=== PATIENT | female | born 1980 | race Caucasian/White ===

== ENCOUNTER 2018-02-26 17:22 | Emergency (ER) | payer OTHER, SELFPAY ==
[2018-02-26 17:23] VITALS: BP 125/84; PULSE 83; RESP 16; TEMP 36.6; O2SAT 97; BMI 41.8
--- NOTE | 2018-02-26 17:44 | RAD_ITS ---
STUDY: X-RAY CHEST REASON FOR EXAM: Female, 37 years old. Pain. TECHNIQUE: PA and lateral views of the chest. COMPARISON: October 17, 2014 FINDINGS: The lungs are clear and expanded. There is no demonstrated pleural abnormality. Normal size heart. Normal mediastinum and serena. Normal visualized pulmonary arteries. Normal visualized aortic arch and descending thoracic aorta. Normal visualized thoracic spine. Normal visualized ribs, clavicles, and shoulders. There is no demonstrated abnormality of the visualized soft tissue structures of the upper abdomen. RAD/Chest PA and Lateral IMPRESSION: No acute cardiopulmonary process. Electronically Signed: Melisa Frank MD at 17:56 EDT Tel , Service support ,
--- NOTE | 2018-02-26 17:52 | ED.DCSUM_ITS ---
- ER Visit Summary Date of Service: 02/26/18 Chief Complaint: Transient left-sided chest pain that lasts less than 5 seconds. History of Present Illness: The patient is a 37 F with no significant past medical history who presents with left-sided sharp transient chest pain last less than 5 seconds. There are no alleviating, exacerbating or precipitating factors. She has no history of PE DVT. She has no risk factors either. Only medication is an antidepressant. She denies fever, chills night sweats. She denies any ocular, visual or auditory symptoms. She denies rhinorrhea, earache , sore throat or postnasal drainage. She denies cough or difficulty breathing. She denies leg pain, swelling discoloration. She is on no hormonal therapy. She denies any abdominal or symptoms. Please read written note for complete detail Physical Examination: Vital signs are unremarkable. She is PERC negative. BMI is 41.9. Head is atraumatic normocephalic. Pupils are equal round reactive. Extraocular muscles are intact. TMs are pearly white with landmarks noted. Nares patent with no drainage. Posterior pharynx without erythema or exudate. Uvula is midline. There is no dysphonia or dysphasia. Trachea is midline. There is no stridor with auscultation of the neck. Heart is regular without murmur, gallop or rub. S1 and S2 are normal. Lungs are clear to auscultation with good movement of air bilaterally. Abdomen is soft nontender with normal bowel sounds. There is no asymmetry, swelling, discoloration, leg vein distention, palpable cords or tenderness along the distribution of the deep venous system. Neuro exam is nonfocal. Test Results: Two-view chest x-ray interpreted by me reveals normal cardiac silhouette, mediastinum, lung parenchyma and bony structures. Emergency Department Course and Treatment: Patient was told her symptoms are not consistent with cardiac. She states her insisted that she come to the emergency department. Treatment Plan: Symptomatic. Patient was informed that because her pain is unknown. She was told this is not cardiac, pulmonary embolus, pneumonia etc. Disposition: Discharged home with appropriate home-going instructions Impression: Transient left-sided chest pain of unknown etiology This note was generated with [employer] dictation software. It may contain incorrect words, spelling, and punctuation that were not noted in review of the chart prior to signing ED Disposition - Plan for ED Patient: Disposition: Home or Assisted Living Chief Complaint: Other, Pain/Inj Instructions: ED Chest Pain NonCardiac Referrals: Jamal Vila MD [Primary Care Provider] - 3-5 Days if not improving
[2018-02-26 18:37] VITALS: BP 115/81; PULSE 70; RESP 16
== END 2018-02-26 18:37 | disposition home or self-care (01) ==
PROVIDERS: Emergency Provider Emergency Medicine; Family Provider Family Medicine; PCP Family Medicine
DX: R07.89 Other chest pain (principal); E66.9 Obesity, unspecified; Z68.41 Body mass index [BMI] 40.0-44.9, adult; F32.9 Major depressive disorder, single episode, unspecified
CPT/HCPCS: 71046; 99282

== ENCOUNTER → 2018-09-08 11:07 | Outpatient (CLI) | payer OTHER, SELFPAY ==
--- NOTE | 2018-09-08 11:31 | EKG12_ITS ---
Test Reason : PRE-OP Blood Pressure : / mmHG Vent. Rate : 057 BPM Atrial Rate : 057 BPM P-R Int : 148 ms QRS Dur : 088 ms QT Int : 424 ms P-R-T Axes : 046 015 022 degrees QTc Int : 412 ms Sinus bradycardia Poor R wave progression Confirmed by BRANDON LEWIS, NAYAN ([id number]), editor publications OLAMIDE WU ([id number]) on 09/08/2018 1:08:23 PM Referred By: OUT DOCTOR Confirmed By:NAYAN TAYLOR MD
== END ==
PROVIDERS: Family Provider Family Medicine; PCP Family Medicine
DX: Z01.810 Encounter for preprocedural cardiovascular examination (principal)
CPT/HCPCS: 93005

== ENCOUNTER → 2018-10-02 08:39 | Outpatient (CLI) | payer OTHER, SELFPAY ==
[2018-10-02 10:23] LABS: International Normalized Ratio 0.9; Partial Thromboplast Time 27.4 Seconds (24.1-36.2); Prothrombin Time (Protime)PT. 12.6 SECONDS (11.7-14.9)
[2018-10-02 10:45] LABS: Vitamin B12 404 pg/mL (211-911); Vitamin D,25 Hydroxy 12.7 ng/mL (29.95-100.01)
[2018-10-02 13:45] LABS: Color, Urine Yellow (Yellow); Glucose, Dipstick Normal (Normal); Ketone-Dipstick 5 mg/dl (Negative); Leukocyte Esterase-Dipstick 100 /ul (Negative); Nitrite-Dipstick Negative (Negative); Occult Blood-Urine Negative /ul (Negative); Protein-Dipstick 15 mg/dl (Negative); Urine Bilirubin Dipstick Negative (Negative); Urine Clarity Sl. Cloudy (Clear); Urine Urobilinogen Normal (Normal)
[2018-10-02 13:47] LABS: Absolute Lymphocyte Count 2.31 X10^3/ul (0.83-4.51); Absolute Neutrophil Count 4.2 X10^3/uL (2.0-7.7); Basophil# 0.02 X10^3/uL; Basophil% 0.3 % (0-1); Eosinophil# 0.27 X10^3/uL; Eosinophils% 3.6 % (0-5); Hematocrit 41.3 % (37-47); Lymphocyte # 2.31 X10^3/ul (4.0); Lymphocyte % 30.9 % (19-41); Mean Corp Hgb Conc 31.5 g/gl (32-36); Mean Corpuscular Hgb 27.7 pg (27.0-32.0); Mean Corpuscular Volume 88.1 fL (81-99); Mean Platelet Vol. 10.4 fl (6.2-12.0); Monocyte# 0.69 X10^3/uL; Monocyte% 9.2 % (0-10); Neutrophil # 4.17 X10^3/uL (2.7-7.7); Neutrophil % 55.9 % (47-70); POSITIVE COUNT NO; POSITIVE DIFFERENTIAL NO; POSITIVE MORPHOLOGY NO; Platelet Count 336 K/mm3 (150-450); RBC Distribution Width CV 13.8 % (11.6-14.6); RBC Distribution Width SD 44.5 fl (35.1-43.9); Red Blood Count 4.69 M/mm3 (4.2-5.4); White Blood Count 7.5 K/mm3 (4.4-11.0)
[2018-10-02 14:26] LABS: ALB/GLOB Ratio 0.9 RATIO (0.9-2.4); AST(SGOT) 15 U/L (15-37); Alanine Aminotransfer ALT/SGPT 31 U/L (13-56); Albumin, Serum 3.5 g/dL (3.2-5.0); Alkaline Phosphatase 113 U/L (45-117); Anion Gap 7 (5-15); BUN 19 mg/dL (7-18); BUN/Creat Ratio 25.7 RATIO (10-20); Calcium,Total 8.5 mg/dL (8.5-10.1); Chloride 106 mmol/L (98-107); Cholesterol 259 mg/dL (200); Creatinine, Serum 0.74 mg/dL (0.55-1.02); EST Glomerular Filtration Rate 93 mL/min (>60); Est Glom Filt Rate - Afr Amer 113 mL/min (>60); Ferritin 32 ng/mL (8-252); Glucose 104 mg/dL (74-106); High Density Lipoprotein 48 mg/dL; Iron 47 ug/dL (50-170); Iron Binding Capacity,Total 370 ug/dL (250-450); PERCENT IRON SATURATION 12.7 % (15.0-55.0); Protein, Total 7.5 g/dL (6.4-8.2); Sodium Level 140 mmol/L (136-145); T4 Free Direct 0.77 ng/dL (0.76-1.46); Thyroid Stim Hormone (TSH) 2.28 uIU/mL (0.358-3.74); Triglycerides 127 mg/dL; Very Low Density Lipoprotein 25 mg/dL (5-40)
[2018-10-06 09:07] LABS: Vitamin B1, Thiamine 120.6 nmol/L (66.5-200.0)
== END ==
PROVIDERS: Family Provider Family Medicine; PCP Family Medicine
DX: R53.81 Other malaise (principal); R53.83 Other fatigue; K90.9 Intestinal malabsorption, unspecified; E55.9 Vitamin D deficiency, unspecified; E78.2 Mixed hyperlipidemia
CPT/HCPCS: 36415; 80053; 80061; 81002; 82306; 82607; 82728; 83540; 83550; 84425; 84439; 84443; 85025; 85610; 85730; 87086; 87088

== ENCOUNTER → 2020-06-21 09:27 | Outpatient (CLI) | payer OTHER, SELFPAY ==
[2020-06-21 08:40] VITALS: BMI 41.8
[2020-06-21 10:50] LABS: Estradiol 63.5 pg/mL; Follicle Stimulating Hormone 3.4 mIU/mL; Thyroid Stim Hormone (TSH) 1.46 uIU/mL (0.358-3.74)
[2020-06-21 11:10] LABS: NATERA MAILED SPECIMEN
[2020-06-24 15:11] LABS: Testosterone Free 2.7 pg/mL (0.0-4.2)
[2020-06-28 04:30] LABS: HPV APTIMA, High Risk Negative (Negative)
== END ==
PROVIDERS: PCP Family Medicine; Referring Provider Obstetrics & Gynecology; Visit Provider Obstetrics & Gynecology
DX: L68.0 Hirsutism (principal); N91.1 Secondary amenorrhea; Z13.29 Encounter for screening for other suspected endocrine disorder; Z12.4 Encounter for screening for malignant neoplasm of cervix; Z80.3 Family history of malignant neoplasm of breast; Z80.41 Family history of malignant neoplasm of ovary; Z80.0 Family history of malignant neoplasm of digestive organs
CPT/HCPCS: 36415; 82627; 82670; 83001; 84402; 84443; 87624; 88175; 82626; G0145

== ENCOUNTER → 2020-06-27 18:33 | Outpatient (CLI) | payer OTHER, SELFPAY ==
[2020-06-21 08:40] VITALS: BMI 41.8
--- NOTE | 2020-06-27 18:35 | US_ITS ---
STUDY: ULTRASOUND OF THE FEMALE PELVIS - COMPLETE REASON FOR EXAM: Female, 39 years old. ENLARGED UTERUS LMP: 06/10/2020. TECHNIQUE: Transabdominal and Transvaginal TECHNICAL QUALITY: Adequate. COMPARISON: Comparison is made with prior study dated 01/10/2011. FINDINGS: The uterus is anteverted and is in a midline position. The uterus is enlarged and measures 12.4 cm x 8.8 cm x 4.6 cm. There is a Nabothian cyst of the cervix. The endometrium measures 7 mm in thickness, and is hyperechoic. There is no demonstrated endometrial mass. 2 uterine fibroids are seen. The larger measures 3.5 cm x 2.9 cm x 3.1 cm. I.U.D. - The patient does not have an I.U.D. The right ovary is visualized. The right ovary measures 2.7 cm x 1.9 cm x 1.1 cm. There is no right ovarian cyst or ovarian mass. There is no visualized right adnexal mass or complex lesion. There is normal arterial and normal venous vascularity. The left ovary is non-visualized. There is no fluid in the cul-de-sac. The pre void volume of the bladder was 285 ml. Polycystic ovary disease: No. US/Pelvic (Non ) IMPRESSION: Enlarged fibroid uterus. Electronically Signed: Feliciano Gomez, at 12:45 EDT , Service support ,
--- NOTE | 2020-06-27 18:48 | US_ITS ---
STUDY: ULTRASOUND OF THE FEMALE PELVIS - COMPLETE REASON FOR EXAM: Female, 39 years old. ENLARGED UTERUS LMP: 06/10/2020. TECHNIQUE: Transabdominal and Transvaginal TECHNICAL QUALITY: Adequate. COMPARISON: Comparison is made with prior study dated 01/10/2011. FINDINGS: The uterus is anteverted and is in a midline position. The uterus is enlarged and measures 12.4 cm x 8.8 cm x 4.6 cm. There is a Nabothian cyst of the cervix. The endometrium measures 7 mm in thickness, and is hyperechoic. There is no demonstrated endometrial mass. 2 uterine fibroids are seen. The larger measures 3.5 cm x 2.9 cm x 3.1 cm. I.U.D. - The patient does not have an I.U.D. The right ovary is visualized. The right ovary measures 2.7 cm x 1.9 cm x 1.1 cm. There is no right ovarian cyst or ovarian mass. There is no visualized right adnexal mass or complex lesion. There is normal arterial and normal venous vascularity. The left ovary is non-visualized. There is no fluid in the cul-de-sac. The pre void volume of the bladder was 285 ml. Polycystic ovary disease: No. US/Transvaginal Non- IMPRESSION: Enlarged fibroid uterus. Electronically Signed: Feliciano Gomez, at 12:45 EDT , Service support ,
== END ==
PROVIDERS: PCP Family Medicine; Referring Provider Obstetrics & Gynecology; Visit Provider Obstetrics & Gynecology
DX: R10.2 Pelvic and perineal pain (principal)
CPT/HCPCS: 76830; 76856

== ENCOUNTER 2020-11-10 05:28 | Day surgery (SDC) | payer OTHER, SELFPAY ==
[2020-07-06 09:38] VITALS: BMI 34.2
[2020-10-30 09:34] VITALS: BMI 35.5
[2020-11-09 08:37] LABS: Hematocrit 38.1 % (37-47); Hemoglobin 11.6 g/dL (12.0-15.0); Mean Corp Hgb Conc 30.4 g/dL (32-36); Mean Corpuscular Hgb 24.9 pg (27.0-32.0); Mean Corpuscular Volume 81.8 fL (81-99); Mean Platelet Vol. 9.5 fl (6.2-12.0); Platelet Count 367 K/mm3 (150-450); RBC Distribution Width CV 15.1 % (11.6-14.6); RBC Distribution Width SD 44.8 fl (35.1-43.9); Red Blood Count 4.66 M/mm3 (4.2-5.4); White Blood Count 5.5 K/mm3 (4.4-11.0)
[2020-11-09 09:00] LABS: Magnesium 2.2 mg/dL (1.6-2.6)
[2020-11-10] VITALS (12 sets, daily range): BP systolic 90–111; BP diastolic 59–75; PULSE 62–95; RESP 14–16; TEMP 36.1–37.1; O2SAT 95–100; BMI 34.7
[2020-11-10 06:14] LABS: Internal QC Validated? YES +Cl - CLEAR BKGD; Pregnancy, Urine Negative Negative
[2020-11-10] MEDS: dexAMETHasone 10 MG/ML Vial 8 MG IV (06:32)
[2020-11-10] MEDS: Phenazopyridine 95 MG Tablet 190 MG PO (06:33)
[2020-11-10] MEDS: Enoxaparin 40 MG/0.4 ML Syringe SC (06:33)
[2020-11-10] MEDS: Celecoxib 200 MG Capsule 400 MG PO (06:33)
[2020-11-10] MEDS: Acetaminophen 500 MG Tablet 1000 MG PO ×2 (06:34→14:34)
[2020-11-10] MEDS: Scopolamine 1mg/72hr Patch 1 PATCH TD (06:34)
[2020-11-10] MEDS: Lactated Ringers 1,000 ML 40 ML IV (06:35)
[2020-11-10 06:40] LABS: Bedside Glucose 107 mg/dL (70-110)
[2020-11-10] MEDS: Gabapentin 600 MG Tablet PO (06:44)
--- NOTE | 2020-11-10 06:57 | PCM.HP.STD ---
Problem List (1) Stress incontinence Status: Acute History of Present Illness Date of Admission: 11/10/20 Chief Complaint: stress incontinence The patient is a 39 year old F undergoing LAVH who presented to the office with stress incontinence. After evaluation and discussion, she decided to proceed with surgical intervention at the time of her LAVH. Informed consent was obtained. Past Medical History Medical History: Medical History (Last Reviewed 11/10/20 @ 06:[address] Mary Moreira MD) Anxiety and depression F41.9, F32.9 Allergies No Known Allergies Allergy (Verified 10/31/20 10:07) Home Medications: Ambulatory Orders Medication Instructions Recorded Fluoxetine [Prozac] 40 mg PO DAILY 04/22/14 multivitamin,[id number]-[id number] 1 tab PO DAILY 06/21/20 Omeprazole [Prilosec] 20 mg PO QHS 10/31/20 Surgical History: Surgical History (Last Reviewed 11/10/20 @ 06:[address] Mary Moreira MD) delivery delivered O82 Encounter for Essure implantation Z30.2 History of gastric surgery Z98.890 sleeve Smoking Status: Former smoker Tobacco Use: Non-smoker Review of Systems Constitutional: Denies: Anorexia, Chills, Fever Eyes: Denies: Vision Change HEENT: Denies: Difficulty Swallowing, Visual Changes Cardiovascular: Denies: Chest Pain, Chest Pressure Respiratory: Denies: Cough, Shortness of Breath Gastrointestinal: Denies: Nausea, Vomiting Genitourinary: Reports: Incontinence, Urgency. Denies: Dysuria, Hematuria Gynecological: Denies: Vaginal itching Skin: Denies: Rash, Wounds Neurological: Denies: Difficulty swallowing Hematologic/ Lymphatic: Denies: Easy Bleeding, Hx of blood clot VTE Information - Inpt Only VTE Present on Admission: Yes VTE Mechan Device Prophylaxis: SCD's VTE Pharm Prophylaxis ordered?: Yes - Physical Exam Vitals/I&O's: Vital Signs Temp Pulse Resp BP Pulse Ox 98.7 F 67 14 110/75 98 11/10/20 06:09 11/10/20 06:09 11/10/20 06:09 11/10/20 06:09 11/10/20 06:09 Oxygen Delivery Method Room Air Weight: 97.7 kg Body Mass Index (BMI) 34.7 General: Alert, Oriented x3 HEENT: Atraumatic, Normocephalic Oral: Moist Mucosa Neck: Supple, Trachea Midline Lungs: Normal air movement Cardiovascular: Regular rate Abdomen: Soft, Non Tender, Non-Distended Extremities: No clubbing, No edema Skin: No rashes Musculoskeletal: No Muscle Wasting Neurological: Cranial nerves II-XII grossly intact, Neuro grossly intact Psych/Mental Status: Normal Affect Microbiology Past 72 Hours 11/09/20 08:40 Interface Orders SARS-CoV-2 Antigen (Rapid) - Final Laboratory Results 11/09/20 08:28: Magnesium 2.2 11/09/20 08:28: WBC 5.5, RBC 4.66, Hgb 11.6 L, Hct 38.1, MCV 81.8, MCH 24.9 L, MCHC 30.4 L, RDW Std Deviation 44.8 H, RDW Coeff of Jazmyne 15.1 H, Plt Count 367, MPV 9.5 11/09/20 08:28: Blood Type A POSITIVE, Antibody Screen NEGATIVE 11/10/20 06:10: Urine Test Negative 11/10/20 06:17: POC Glucose 107 Current Medications Acetaminophen (Acetaminophen 500 Mg Tablet) 1,000 mg PO PREOP ONE Stop: 11/10/20 07:31 Last Admin: 11/10/20 06:34 Dose: 1,000 mg Documented by: Celecoxib (Celecoxib 200 Mg Capsule) 400 mg PO X1 ONE Stop: 11/10/20 07:31 Last Admin: 11/10/20 06:33 Dose: 400 mg Documented by: Dexamethasone Sodium Phosphate (Dexamethasone 10 Mg/Ml Vial) 8 mg IV X1 ONE Stop: 11/10/20 07:31 Last Admin: 11/10/20 06:32 Dose: 8 mg Documented by: Enoxaparin Sodium (Enoxaparin 40 Mg/0.4 Ml Syringe) 40 mg SC X1 ONE Stop: 11/10/20 07:31 Last Admin: 11/10/20 06:33 Dose: 40 mg Documented by: Gabapentin (Gabapentin 600 Mg Tablet) 600 mg PO PREOP ONE Stop: 11/10/20 07:31 Last Admin: 11/10/20 06:44 Dose: 600 mg Documented by: Lactated Ringer's () 1,000 mls @ 40 mls/hr IV .Q25H CLAUDIO Last Admin: 11/10/20 06:35 Dose: 40 mls/hr Documented by: Cefazolin Sodium 2 gm/ Sodium (Chloride) 110 mls @ 150 mls/hr IV PREOP ONE Stop: 11/10/20 08:13 Lactated Ringer's () 1,000 mls @ 70 mls/hr IV .[id number] CLAUDIO Magnesium Sulfate 3 gm/ Sodium (Chloride) 106 mls @ 212 mls/hr IV X1 ONE Stop: 11/10/20 07:59 Last Admin: 11/10/20 06:44 Dose: 212 mls/hr Documented by: Insulin Human Lispro (Insulin Lispro 100 Unit/Ml Insuln.Pen) 0 unit SC Q4H PRN PRN; Protocol PRN Reason: BG >/= 180, SEE PROTOCOL Ondansetron HCl (Ondansetron 4 Mg/2 Ml Vial) 4 mg IV X1 ONE Stop: 11/10/20 07:31 Phenazopyridine HCl (Phenazopyridine 95 Mg Tablet) 190 mg PO X1 ONE Stop: 11/10/20 07:31 Last Admin: 11/10/20 06:33 Dose: 190 mg Documented by: Scopolamine HBr (Scopolamine 1mg/72hr Patch) 1 patch TD X1 ONE Stop: 11/10/20 07:31 Last Admin: 11/10/20 06:34 Dose: 1.5 mg Documented by: Assessment/Plan All Active Problems (Last Reviewed 10/30/20 @ 09:34 by Ada Burger) Stress incontinence (Acute) Uterine fibroids affecting (Acute) Abnormal uterine bleeding (AUB) (Acute) Hirsutism (Acute) Mixed urge and stress incontinence (Acute) Family history of ovarian cancer (Acute) midurethral sling insertion and cystoscopy Procedure Criteria Procedure Type: Elective COVID Risk Discussion: The surgeon/proceduralist and patient have discussed in detail the risk of exposure to and/or potential harm posed by the COVID-19 virus with having a surgery/procedure at this time versus the risk of delaying the surgery/procedure. It is not possible to know either the risk of delaying the surgery or procedure or chance of getting an infection with perfect accuracy, but a joint decision was made between the patient and the surgeon/proceduralist to proceed at this time with the scheduled surgery/procedure as indicated on the consent form.
--- NOTE | 2020-11-10 07:30 | HYST_PTH ---
PATIENT: SANDIP WU LOC: [facility] – [place] U#:[id number] AGE/SX: 39/F ROOM: RE11/10/[address]: Dr. Hannah Hendrix MD : 1980 BED: DIS: 11/10/2020 SPEC #: [id number] RECD: 11/10/20 10:22 STATUS: FAINA ELIO #: [id number] JULIÁN: 11/10/20 07:[address]: Hannah Hendrix DEPT: SURGICAL PATHOLOGY RECD BY: Jocelynn Hernandez ENTERED: 11/10/20 11:22 SP TYPE: HYSTERECT OTHR DR: MD Dr. Jamal Boyd MD Tissues: A - Uterus, NOS B - Urethra, NOS Procedures: Surgery Specimen Level IV Surgery Specimen Level V HEADER OPERATION: Hysterectomy, LAVH, salpingectomy PRE-OP DIAGNOSIS: Abnormal uterine bleeding; uterine fibroids TISSUE SUBMITTED: A - Uterus, bilateral fallopian tubes, B - Urethral diverticulum MICROSCOPIC DIAGNOSIS A. Uterus and bilateral fallopian tubes, vaginal hysterectomy and bilateral salpingectomy: Cervix - mild chronic cystic cervicitis with tunnel cluster formation. Endometrium - proliferative endometrium. Myometrium - leiomyomas, intramural and submucosal (largest measuring 3 cm in greatest dimension). Right fallopian tube - no pathologic diagnosis. Left fallopian tube - endometriosis, serosal surface. B. Urethral diverticulum: Consistent with ureteral diverticulum. SJ:ponce 11/13/2020 MICROSCOPIC DESCRIPTION Slides are reviewed. GROSS DESCRIPTION A - Received in fixative is one container labeled with the patient's name and designated uterus. The specimen consists of a uterus with attached cervix and attached right and left fallopian tubes. The uterus with cervix measures 11 x 9 x 5.5 cm and weighs 212 gm. The ectocervix is unremarkable. The cervical os is oval in contour. The endocervical canal measures 3.5 cm in length and is free of mass lesions. The triangular endometrial cavity measures 4 x 3.5 cm. The reddish-camacho, velvety endometrium measures up to 0.2 cm in thickness. The myometrium measures 2.3 cm in average thickness and contains multiple masses measuring 1 to 3 cm in greatest diameter, intramural and submucosal in location. The right and left fallopian tubes are similar in appearance with average lengths of 5 cm and average diameters of 0.7 cm. The fimbriated ends have a normal villous appearance. The right fallopian tube contains an Essure device that is intact. [employer] sections are submitted in 11 cassettes as follows: 1??anterior cervix, 2 - posterior cervix, 3 & 4 - anterior uterine wall, 5 & 6 - posterior uterine wall, 7??largest myometrial mass, 8 - second largest myometrial mass, 9 - smaller myometrial masses, 10??right fallopian tube, 11 - left fallopian tube. B - Received in fixative is one container labeled with the patient's name and designated urethral diverticulum. The specimen consists of an irregular fragment of pink-camacho soft tissue measuring 1 x 0.5 x 0.2 cm. The specimen is totally submitted in one cassette. / AM:ponce 11/10/20 TC:1 CPT: 69362, 41318
[2020-11-10] MEDS: Cefazolin 2 GM in 0.9% Normal Saline 100 ML IV (07:41)
--- NOTE | 2020-11-10 07:56 | HP.PCM_ITS ---
- Problem List (1) Abnormal uterine bleeding (AUB) Status: Acute (2) Family history of ovarian cancer Status: Acute Comment: counseled, empower testing- negative, consider prophylactic oophorectomy at age 49. (3) Hirsutism Status: Acute Comment: labs ordered (4) Mixed urge and stress incontinence Status: Acute Comment: s/p urogyn consult. needs sling combo case with [facility] (5) Stress incontinence Status: Acute (6) Uterine fibroids affecting Status: Acute Comment: 12 week size, 1 previous csection. plan KALIE BS. 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 Is patient in pain?: No Allergies No Known Allergies Allergy (Verified 10/30/20 09:34) Medications Fluoxetine [Prozac] 40 mg PO DAILY 04/22/14 [History Confirmed 10/30/20] multivitamin,jy-yizd-yovnjzmb 1 tab PO DAILY 06/21/20 [History Confirmed 07/06/20] Is last menstrual period known: No Post menopausal: No Patient : No : No [facility] Medical History Anxiety and depression (Acute) Surgical History delivery delivered (Acute) Encounter for Essure implantation (Acute) History of gastric surgery (Acute) Family History Mother Cancer ovarian Grandmother Cancer ovarian Aunt Breast cancer Social History (Updated 10/30/20 @ 09:[address] 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 she is having a hysterecotmy and sling for incontinence, heavy bleeding and fibroids. Female Reproductive History Cycle Length: 21-35 Bleeding Duration: 7 Menopausal Symptoms: Yes hot flashes, No night sweats, No difficulty concentrating, No change in libido Pregancy History 3 Elective abortions Hx Para 3 Spontaneous abortions Hx # Term Pregnancies Ectopic pregnancies Hx # Pregnancies Multiple births # of living children Past Pregnancies Del. Date Name GA/Weeks Outcome Route Bth Weight Gen Labor Lgth Anesthesia Del Locatn Provider FOB Unknown john live - full term Unknown Elissa live - full term Unknown Hernando live - full term ROS Const Constitutional: Reports as per HPI; denies fatigue, increased appetite, poor appetite, night sweats, weight gain or weight loss Cardio Card: Denies chest pain Resp Resp: Denies cough or dyspnea GI GI: Reports as per HPI; denies abdominal pain, bloating, constipation, nausea or vomiting : Reports as per HPI, hot flashes, urinary frequency, urinary incontinence, urinary urgency and other; denies difficulty urinating, painful urination, blood in urine, nipple discharge, pelvic pain, prolapse symptoms, vaginal discharge, vaginal dryness, vaginal odor or vaginal itching Skin Skin/Breast: Denies changing lesions, breast lump, breast pain, breast skin changes or nipple discharge Psych Psych: Denies anxiety, change in sex drive, depression or difficulty concentrating Exam Const General: cooperative, healthy appearing, comfortable, no acute distress, well developed, well groomed [facility] Head: normal to inspection, normocephalic Ears: hearing grossly normal bilaterally, external ears normal Nose: external nose normal Face and sinus: normal facial exam Neck Neck: normal visual inspection, full ROM, no lymphadenopathy Thyroid: thyroid normal Chest Chest palpation & inspection: normal inspection of the chest Breast inspection: normal inspection of the breasts, normal inspection of the axillae Breast palpation: normal palpation of the breasts, normal palpation of the axillae, no axillary lymphadenopathy Resp Effort & Inspection: normal respiratory effort GI Inspection: normal to inspection, non-distended Palpation: soft, no hepatosplenomegaly, no guarding General: bladder normal to palpation External Female Exam: normal external appearance, normal appearance of the urethra, no lesions Urethra: normal appearance of the urethra, normal palpation Speculum Exam - Vagina: normal appearance of the vagina, normal vaginal discharge Speculum Exam - Cervix: normal appearance of the cervix, no cervical discharge, no lesions, nontender Bimanual Exam- Vagina & Uterus: normal bimanual exam, uterine size normal, bladder normal to palpation, No cervical tenderness, uterine mobility normal, uterine consistency normal, uterus non-tender, no cervical motion tenderness Bimanual Exam- Adnexa, other: normal adnexae, no adnexal masses, adnexae non- tender Skin General: no rashes or lesions noted Neuro General: alert, moves all extremities, no focal motor deficits Extrem General: normal to inspection, no pedal edema Psych Appearance: grossly normal Mental Status: mental status grossly normal Affect: normal affect Speech and Movement: speech and movement normal Attitude: cooperative Assessment & Plan Problems 1. Mixed urge and stress incontinence N39.46 s/p urogyn consult. needs sling combo case with [facility] 2. Abnormal uterine bleeding (AUB) N93.9 3. Uterine fibroids affecting O34.10; D25.9 12 week size, 1 previous csection. plan [facility] BS. plan SDS, Kin 4. Family history of ovarian cancer Z80.41 counseled, empower testing- negative, consider prophylactic oophorectomy at age 49. Plan After discussing the patient's diagnosis and treatment plan options, patient wishes to proceed with surgical management. I have discussed with the patient the risks, benefits, and alternatives of the procedure which include but are not limited to risks of anesthesia, bleeding, infection, possible damage to bowel, bladder, or surrounding vasculature which could lead to additional surgery to evaluate any complications. Patient agrees to procedure and wishes to proceed. ACOG/uptodate references given for additional information regarding procedure. consent signed Coding Level of Care Code Off vis,est,level 3 Diagnoses Mixed urge and stress incontinence N39.46 Abnormal uterine bleeding (AUB) N93.9 Uterine fibroids affecting O34.10; D25.9 Family history of ovarian cancer Z80.41 UPDATE- I have seen the patient and performed any clinically relevant updates to the history and physical exam. Hannah Hendrix MD
[2020-11-10] MEDS: Vasopressin 20 UNITS/ML Vial (09:00)
--- NOTE | 2020-11-10 09:01 | OP.PCM_ITS ---
Problem List (1) Stress incontinence Status: Acute Report of Operation Date of Procedure: 11/10/20 Pre-Operative Diagnosis: stress incontinence Post-Operative Diagnosis: same, urethral diverticulum Surgery/Procedure Performed:: aborted midurethral sling, excision urethral diverticulectomy, cystoscopy with right ureteral catheterization Type of Anesthesia:: General Specimen's removed: Urethral diverticulum Estimated Blood Loss (mL): 5 cc Description of Procedure: The patient is a 39-year-old female who presented to the office with stress urinary incontinence desiring concomitant surgical intervention with her hysterectomy. She underwent a thorough evaluation and informed consent was obtained. She now presents for surgical intervention. The patient was taken to the operating room and placed on the operating room table. Anesthesia monitored the head, neck, airway, IV access and vital signs throughout the case. Once anesthesia was appropriately administered, the patient was placed into dorsal lithotomy position and was prepped and draped in usual sterile fashion. She underwent an LAVH etc. per Dr. Hendrix. At the conclusion of her portion of the procedure, the patient was turned over to ca. A Ward catheter was indwelling in the bladder was empty. The mid urethra was identified and injected submucosally with vasopressin for hydrostatic dissection and hemostatic control. A midline vertical incision approximately 2 cm in length was then made. Sharp and blunt dissection was performed on either side of the urethra. As the urethra was dissected, it became apparent that the patient had an approximately 8 mm left sided cystic structure consistent with urethral diverticulum versus [place]'s gland cyst. The decision was made to abort the mid urethral sling insertion. The diverticulum was carefully dissected using a peanut and sharp dissection with Metzenbaums. It was removed in its entirety. There is no obvious connection to the urethra seen. The Ward catheter was not visible. The periurethral tissue over the area was brought together using a 4-0 Vicryl with interrupted sutures. The midline incision was then closed with running interlocking 2-0 Vicryl. At this time the Ward catheter was removed and a cystourethroscopy through the urethra was performed. There were no urethral openings identified or injuries to the urethra. The bladder was visualized in its entirety and there were no foreign bodies, areas of hemorrhage or injury identified. Bilaterally ureteral orifices were identified slightly more midline than normal. The left ureteral orifice had a good urine jet. The right side did not, and a 5 [place] whistle-tip catheter was inserted without difficulty to 20 cm. There is no evidence of injury or hemorrhage to the ureter. At this time the bladder was emptied and the cystoscope was removed. The patient was then awakened and taken to the recovery room in good condition. There were no complications during the procedure. Grafts/Implants Used: none - Complications none - Admit VTE Documentation VTE Present on Admission: Yes VTE Mechan Device Prophylaxis: SCD's VTE Pharm Prophylaxis ordered?: Yes
--- NOTE | 2020-11-10 09:05 | DCINST_ITS ---
Discharge Diet: No Restrictions Discharge Activity: May not drive while taking narcotic pain medications., May Shower May resume sexual activity in: 6-8 weeks Additional Activity Instructions:: No lifting over 5 pounds for 4 weeks. No strenuous activity, no exercise for 4 weeks. No intercourse or sexual activity, no swimming, tub bathing or hot tubs for 4 weeks. Call your doctor if your incision/area has: Continuous Slow Oozing, Sudden Increased Bleeding, Increased Pain/ Swelling, Increased Redness, Foul Smelling Discharge, Swelling at the incision site Call your doctor if you observe: Fever of 101 or Higher, Inability to urinate, Inability to have a bowel movement, Calf discomfort, Uncontrolled pain Allergies/Adverse Reactions: Allergies No Known Allergies Allergy (Verified 10/31/20 10:07) Medications to take at Discharge Fluoxetine [Prozac] 40 mg PO DAILY 04/22/14 multivitamin,iw-laeb-xvrrwchq 1 tab PO DAILY 06/21/20 Omeprazole [Prilosec] 20 mg PO QHS 10/31/20 Naproxen [Naprosyn] 250 - 500 mg PO Q8H PRN PRN #30 tab 11/10/20 Oxycodone HCl/Acetaminophen [Percocet 5-325] 1 - 2 tab PO Q6H PRN PRN 7 Days #15 tab 11/10/20 The following prescriptions were given: Naproxen [Naprosyn] 250 - 500 mg PO Q8H PRN PRN #30 tab PRN Reason: MILD PAIN Transmission Status: Received by [facility] Oxycodone HCl/Acetaminophen [Percocet 5-325] 1 - 2 tab PO Q6H PRN PRN 7 Days #15 tab PRN Reason: Pain Transmission Status: Received by [facility] Primary Care Physician: Jamal Vila MD [Primary Care Provider] - Test Results: Test results from this visit will be discussed in further detail at your follow- up appointment, if applicable. Please Follow Up With: Mary Moreira MD When: call office for appt Proposed Discharge Date: 11/10/20
[2020-11-10] MEDS: Bupivacaine 0.25% 30 ML Vial (09:40)
[2020-11-10] MEDS: Lactated Ringers 1,000 ML 70 ML IV ×2 (10:44→13:41)
[2020-11-10 13:28] LABS: Hematocrit 35.2 % (37-47); Hemoglobin 10.5 g/dL (12.0-15.0); Mean Corp Hgb Conc 29.8 g/dL (32-36); Mean Corpuscular Hgb 24.5 pg (27.0-32.0); Mean Corpuscular Volume 82.2 fL (81-99); Mean Platelet Vol. 9.8 fl (6.2-12.0); Platelet Count 326 K/mm3 (150-450); RBC Distribution Width CV 14.9 % (11.6-14.6); RBC Distribution Width SD 45.3 fl (35.1-43.9); Red Blood Count 4.28 M/mm3 (4.2-5.4); White Blood Count 15.1 K/mm3 (4.4-11.0)
[2020-11-10] MEDS: Ketorolac 30 MG/ML Syringe IV (14:35)
--- NOTE | 2020-11-10 22:16 | OP.PCM_ITS ---
Problem List (1) Abnormal uterine bleeding (AUB) Status: Acute (2) Family history of ovarian cancer Status: Acute Comment: counseled, empower testing- negative, consider prophylactic oophorectomy at age 49. (3) Hirsutism Status: Acute Comment: labs ordered (4) Mixed urge and stress incontinence Status: Acute Comment: s/p urogyn consult. needs sling combo case with LAVH (5) Stress incontinence Status: Acute (6) Uterine fibroids affecting Status: Acute Comment: 12 week size, 1 previous csection. plan KALIE HUMMEL. plan SDS, Kin Report of Operation Date of Procedure: 11/10/20 Pre-Operative Diagnosis: aub uterine fibroids Post-Operative Diagnosis: same Surgery/Procedure Performed:: kalie hummel Description of Surgical Findings:: enlarged fibroid uterus pelvic congestion stitchdowns toe former: Rosa Cronin Type of Anesthesia:: General Special Medications: medina Specimen's removed: uterus tubes Drains: mckinley Estimated Blood Loss (mL): 200 Fluids Replaced: crystalloid Description of Procedure: Patient received preoperative antibiotics and SCDs were on preoperatively. Patient was taken back to the operating room and placed in the dorsal lithotomy position. General anesthesia was induced and patient was prepped and draped in normal sterile fashion. Uterine manipulator was placed inside the uterus and Mckinley catheter placed in the bladder. The umbilicus was grasped with towel clamps and an intraumbilical incision was made after injecting with quarter percent Marcaine and a Veress needle entered into the abdomen confirmed to be intra-abdominal with a low opening pressure. Abdomen was insufflated with CO2 gas and the Veress needle removed and the 5 mm trocar was placed under direct visualization without complication. Right and left lower quadrants were transilluminated and injected with quarter percent Marcaine and 5 mm ports placed under direct visualization. Pelvis was well visualized see operative findings for additional information. Bilateral fallopian tubes were identified and transected with the LigaSure device across the mesosalpinx to the level of the utero-ovarian ligament which was also transected with the LigaSure device. The broad ligament was opened up by transecting the round ligament bilaterally and skeletonizing the uterine vessels bilaterally and creating a bladder flap using the LigaSure device. The uterine arteries were transected bilaterally with good visualization of the bladder and the ureters were seen to be inferior lateral to the operative area. Attention was then paid to the vaginal portion of the procedure and the cervix was grasped with Jaymie clamps and circumferentially injected with dilute vasopressin. A circumferential incision was made and the vaginal mucosa was mobilized off posteriorly and the cul-de-sac entered into sharply and a longneck speculum placed. The anterior cul-de-sac was then identified and entered into sharply. The uterosacral ligaments were clamped cut and suture ligated with 0 Monocryl bilaterally followed by the cardinal ligaments which were clamped cut and suture ligated bilaterally with 0 Monocryl. The uterus serially descended and was removed without difficulty with minimal morcellation. Pelvic sidewall pedicles were checked and noted to have excellent hemostasis. 2-0 PDS was used to stitch a modified mcalls to support the apex due to a mild enterocele present. The vaginal mucosa was reapproximated incorporating the posterior peritoneum. This was reapproximated using 0 Vicryl [id number] sutures. Excellent hemostasis was noted. The cystoscopy was then performed and bilateral ureteral strong spray was noted and the bladder was noted to have no abnormality or lesions seen. Mckinley catheter was replaced and then attention paid to the abdominal portion of the procedure again. The pelvis and cul-de-sac was well visualized and no significant active bleeding noted but some raw areas were seen on the peritoneum and therefore Medina was applied. Pressure was taken down and the areas visualized and noted of excellent hemostasis. All ports were removed under direct visualization without complication and the abdomen was desufflated of air. The instruments removed from the abdomen and the vagina vaginal sweep was negative. Port sites on the abdomen were closed with 4-0 Monocryl interrupted sutures and Steri's and windows were applied. She was awoken and taken recovery in stable condition after dr vines completed her portion. Grafts/Implants Used: none - Complications none Multi Select Codes - Urinary/Genital Urinary/Genital CPT Codes: 84283 LAVH+BS/O <250gr Uterus
== END 2020-11-10 18:01 | disposition home or self-care (01) ==
LOC: SDC 05:28 → AC 05:29
PROVIDERS: Anesthesiology; Urology; PCP Family Medicine; Referring Provider Obstetrics & Gynecology; Visit Provider Obstetrics & Gynecology
PROC: 0UT9FZZ Resection of Uterus, Via Natural or Artificial Opening With Percutaneous Endoscopic Assistance (ICD-10-PCS; CPT 58552; principal; 2020-11-10 07:05)
PROC: 0TJB8ZZ Inspection of Bladder, Via Natural or Artificial Opening Endoscopic (ICD-10-PCS; CPT 57288; 2020-11-10 07:05)
DX: N93.9 Abnormal uterine and vaginal bleeding, unspecified (principal); D25.0 Submucous leiomyoma of uterus; D25.1 Intramural leiomyoma of uterus; N72 Inflammatory disease of cervix uteri; N80.2 Endometriosis of fallopian tube; N39.46 Mixed incontinence; N36.1 Urethral diverticulum; K21.00 Gastro-esophageal reflux disease with esophagitis, without bleeding; F32.9 Major depressive disorder, single episode, unspecified; F41.9 Anxiety disorder, unspecified; L68.0 Hirsutism; Z79.1 Long term (current) use of non-steroidal anti-inflammatories (NSAID); Z79.52 Long term (current) use of systemic steroids; Z79.899 Other long term (current) drug therapy; Z87.891 Personal history of nicotine dependence; Z20.822 Contact with and (suspected) exposure to COVID-19; Z80.41 Family history of malignant neoplasm of ovary
CPT/HCPCS: 00840; 53230; 57288; 58552; 36415; 81025; 82962; 83735; 85027; 86850; 86900; 86901; 87426; 88305; 88307; C9803; J7120; J2405

== ENCOUNTER → 2021-02-20 | Outpatient (CLI) | payer OTHER, SELFPAY ==
[2021-02-20 08:56] VITALS: BMI 32.9
== END | disposition home or self-care (01) ==
LOC: LABSPEC 12:46
PROVIDERS: PCP Family Medicine; Referring Provider Nurse Practitioner Women's Health; Visit Provider Nurse Practitioner Women's Health
DX: N89.8 Other specified noninflammatory disorders of vagina (principal); R35.0 Frequency of micturition
CPT/HCPCS: 87070; 87086; 87088; 87205

== ENCOUNTER 2022-02-12 08:23 | Day surgery (SDC) | payer OTHER, SELFPAY ==
[2022-02-12] VITALS (8 sets, daily range): BP systolic 101–123; BP diastolic 63–72; PULSE 59–100; RESP 16–18; TEMP 36.3–36.9; O2SAT 88–100; BMI 36.0
[2022-02-12] MEDS: Lactated Ringers 1,000 ML 15 ML IV ×2 (09:05→10:30)
[2022-02-12 09:15] LABS: Absolute Lymphocyte Count 2.07 X10^3/uL (0.83-4.51); Absolute Neutrophil Count 3.1 X10^3/uL (2.0-7.7); Basophil# 0.03 X10^3/uL; Basophil% 0.5 % (0-1); Eosinophil# 0.18 X10^3/uL; Hematocrit 38.9 % (37-47); Hemoglobin 12.7 g/dL (12.0-15.0); Lymphocyte # 2.07 X10^3/ul (0.83-4.51); Lymphocyte % 34.4 % (19-41); Mean Corp Hgb Conc 32.6 g/dL (32-36); Mean Corpuscular Hgb 29.4 pg (27.0-32.0); Mean Platelet Vol. 9.9 fl (6.2-12.0); NRBC Flagged by Analyzer 0 % (0-5); Neutrophil # 3.13 X10^3/uL (2.7-7.7); Neutrophil % 51.9 % (47-70); Platelet Count 282 K/mm3 (150-450); RBC Distribution Width CV 13.3 % (11.6-14.6); RBC Distribution Width SD 43.6 fl (35.1-43.9); Red Blood Count 4.32 M/mm3 (4.2-5.4)
--- NOTE | 2022-02-12 09:19 | HP.PCM_ITS ---
HPI - General HPI Narrative SANDIP WU, is a 41 F who presents for insertion of midurethral sling. She has failed physical therapy and conservative management. Informed consent has been obtained. FOR[facility]LY [facility], [facility] Medical History (Updated 02/12/22 @ 09:[address] Mary Moreira MD) Alcohol use Anxiety and depression Back pain Difficulty swallowing Former smoker Gastric reflux History of hiatal hernia Hx of esophagitis Post-menopausal [place]'s duct cyst Stress incontinence Wears glasses Home Medications fluoxetine [Prozac] 60 mg PO DAILY 04/22/14 [History Last Taken Unknown] multivitamin,lj-dohn-tufowbgy 1 tab PO DAILY 06/21/20 [History Last Taken Unknown] omeprazole 20 mg PO QHS 10/31/20 [History Last Taken Unknown] Allergy/AdvReac Type Severity Reaction Status Date / Time adhesive Allergy Other Verified 02/06/22 11:35 adhesive tape Allergy Other Verified 02/06/22 11:35 Family History Mother Cancer ovarian Grandmother Cancer ovarian Aunt Breast cancer Surgical History delivery delivered Encounter for Essure implantation History of gastric surgery History of [employer] Hx of spinal fusion Social History Smoking Status: Former smoker alcohol intake: current details: social substance use type: does not use caffeine: Yes what type of physical activity do you participate in: walking and weight training seatbelt use: always do you feel safe at home: Yes 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 Constitutional Constitutional: Denies body ache(s), chills, fatigue, fever(s) or poor appetite Eyes Eyes: Denies change in vision ENT HEENT: Reports systems reviewed and no addt'l complaints, except as documented; Denies abnormal hearing Cardiovascular Cardiovascular: Denies abdominal pain, chest pain, claudication, fatigue, nausea, tachypnea or vomiting Respiratory/Chest Respiratory/Chest: Denies change in mental status, chest congestion, chest t ightness, cough, inability to speak or wheezing Gastrointestinal Gastrointestinal: Denies abdominal pain, nausea, taste impaired or vomiting Genitourinary Genitourinary: Reports urinary incontinence; Denies dysuria, flank pain, he maturia or urinary hesitancy Musculoskeletal Musculoskeletal: Reports systems reviewed and no addt'l complaints, except as documented Integumentary Integumentary: Denies pruritus, rash or wounds Neurologic Neurologic: Reports systems reviewed and no addt'l complaints, except as do cumented Psychiatric Psychiatric: Reports systems reviewed and no addt'l complaints, except as documented Endocrine Endocrinology: Reports systems reviewed and no addt'l complaints, except as documented Hematologic/Lymphatic Hematologic/Lymphatic: Reports systems reviewed and no addt'l complaints, except as documented Allergic/Immunologic Allergic/Immunologic: Reports systems reviewed and no addt'l complaints, except as documented Vital Signs Vital Signs Vital Signs: 02/12/22 08:56 02/12/22 08:57 Temperature 97.3 F L Temperature Source Temporal Pulse Rate 59 L Respiratory Rate 16 Respiratory Pattern Normal Blood Pressure 111/72 Blood Pressure Mean 85 Blood Pressure Source Monitor Blood Pressure Position Semi-Fowlers Blood Pressure Location Left Arm Pulse Ox 99 Oxygen Delivery Method Room Air Weight Weight: 104.4 kg Body Mass Index (BMI) 36.0 Physical Exam Const alert, oriented x3, no apparent distress and average body habitus General Appearance: cooperative, comfortable, well kempt and well developed HEENT normocephalic, head/scalp atraumatic, hearing grossly normal bilaterally, external ears normal and external nose normal Eyes conjunctivae normal and no scleral icterus General Eye: normal appearance of both eyes Neck supple General: normal visual inspection and trachea midline Lymph Lymphatic: no lymphedema noted Chest inspection of chest normal Chest: symmetrical chest wall rise Resp normal respiratory effort, normal air movement, no retractions and no use of accessory muscles Effort and Inspection: able to speak in complete sentences and symmetric chest movement Cardio regular rate and regular rhythm GI soft to palpation, non-tender and non-distended no CVA tenderness and external exam normal Back/Spine no CVA tenderness and normal to inspection Extremity normal to inspection and no clubbing, cyanosis or edema Skin no rashes or lesions noted, no wounds, skin turgor normal, no jaundice, no petechiae and no mottling Neuro oriented x3, CN's II-XII intact bilaterally and moves all extremities Psych mental status grossly normal, thought process normal, cooperative, affect normal and speech normal Results Lab / Micro Data Result Diagrams: 02/12/22 09:04 02/12/22 09:04 Labs: Laboratory Results - last 24 hr 02/12/22 09:04: WBC 6.0, RBC 4.32, Hgb 12.7, Hct 38.9, MCV 90.0, MCH 29.4, MCHC 32.6, RDW Std Deviation 43.6, RDW Coeff of Jazmyne 13.3, Plt Count 282, MPV 9.9, Immature Gran % (Auto) 0.200, Neut % (Auto) 51.9, Lymph % (Auto) 34.4, [place] % (Auto) 10.0, Eos % (Auto) 3.0, Baso % (Auto) 0.5, Absolute Neuts (auto) 3.1, Absolute Lymphs (auto) 2.07, Nucleated RBC % 0 Assessment & Plan Assessment/Plan (1) Stress incontinence: PLAN: proceed with midurethral sling and cystoscopy
--- NOTE | 2022-02-12 09:25 | DCINST_ITS ---
Discharge Instructions Diet Discharge Diet: No restrictions Activity Discharge Activity: May Shower Lifting Restrictions: No exercising, lifting, sexual activity, swimming, hot tubs or tub bathing Dressing / Incision Call your doctor if your incision/area has: Continuous Slow Oozing, Sudden Increased Bleeding, Increased Pain/ Swelling, Increased Redness, Foul Smelling Discharge and Swelling at the incision site Call your doctor if you observe: Fever of 101 or Higher, Inability to urinate and Inability to have a bowel movement Follow Up Care Please Follow Up With: Mary Moreira MD When: in the office in 2 weeks call for appt Test Results: Test results from this visit will be discussed in further detail at your follow-up appointment, if applicable. Discharge Plan Admission Attending Provider: Mary Moreira Primary Care Provider: Jamal Vila Discharge Orders/Prescriptions Prescriptions: New oxycodone-acetaminophen [oxycodone-acetaminophen] 1 TABLET tablet 2 tab PO Q8H PRN PRN (Reason: Pain) 3 Days Qty: 16 RF: 0 cephalexin [cephalexin] 500 MG capsule 500 mg PO Q12 3 Days Qty: 6 RF: 0 Continued multivitamin,ml-ertd-ecaqswkg tablet 1 tab PO DAILY RF: 0 fluoxetine [Prozac] 20 MG capsule 60 mg PO DAILY RF: 0 omeprazole 20 MG capsule 20 mg PO QHS RF: 0 Other Ambulatory Orders: Basic Metabolic Profile (BMP) (Routine) Timeframe: 20220206 Facility: [facility] - Location: Laboratory Ordered By: Dr. Mary Moreira CBC-Complete Blood Cnt No Diff (Routine) Timeframe: [id number] Facility: [facility] - Location: Laboratory Ordered By: Dr. Mary Moreira Referrals / Follow Up: Jamal Vila MD [Primary Care Provider] - Disposition Disposition (needs filled in before D/C Order can be placed): Home, Self Care
[2022-02-12 09:33] LABS: Anion Gap 4 (5-15); BUN 10 mg/dL (7-18); BUN/Creat Ratio 13.6 RATIO (10-20); Calcium,Total 8.7 mg/dL (8.5-10.1); Chloride 108 mmol/L (98-107); Creatinine, Serum 0.74 mg/dL (0.55-1.02); EST Glomerular Filtration Rate 92 mL/min (>60); Est Glom Filt Rate - Afr Amer 111 mL/min (>60); Estimated Creatinine Clearance 96.31 ml/min; Glucose 100 mg/dL (74-106); Potassium 3.9 mmol/L (3.5-5.1); Sodium Level 139 mmol/L (136-145)
--- NOTE | 2022-02-12 09:33 | OP.PCM_ITS ---
Problems Associated Problem List Diagnoses (1) Stress incontinence: Report of Operation Date of Procedure: 02/12/22 Pre-Operative Diagnosis: Stress urinary incontinence Post-Operative Diagnosis: Same Surgery/Procedure Performed:: Mid urethral sling, cystoscopy Surgeon: Mary Moreira Type of Anesthesia: General Estimated Blood Loss (mL): 20cc Description of Procedure: The patient is a 41-year-old female with stress urinary incontinence who has undergone testing with urodynamics and cystoscopy in the past. She has failed treatment with pelvic floor physical therapy. She now presents for definitive surgical intervention. Informed consent was obtained. The patient was taken to the operating room and placed on the operating room table. Anesthesia monitored the head, neck, airway, IV access and vital signs throughout the case. Once anesthesia was appropriate ministered the patient was placed into dorsal lithotomy and Trendelenburg position. She was prepped and draped in usual sterile fashion. A 16 Setswana Ward catheter was inserted to straight drain and the bladder was emptied. The mid urethra was isolated and submucosally injected with 1% lidocaine with epinephrine for hydrostatic dissection and hemostatic control. A midline vertical incision was made approximately 1.5 cm in length. Sharp and blunt dissection was performed on either side with care being taken to avoid entrance into the urethra or the vaginal mucosa. There was significant redundancy of the vaginal mucosa, and there was scarring from the skene's gland cyst removal. The right trocar was used to place the sling, and was passed through the vaginal mucosa and then around the bone inadvertantly and was removed. The rey remained in position. Further dissection was then performed. A new Altis mid urethral sling was then inserted using the tines and trochars into the obturator complexes bilaterally without passing through the mucosa. The sling lay flat against the urethra without tension. The tensioning suture was cut. The incision was closed using running interlocking 2-0 Vicryl. The openings of the vaginal mucosa on the right side wall were closed with 2-0 Vicryl. At this time the Ward catheter was removed and the cystoscope was inserted through the urethra under direct visualization revealing no evidence of injury to the urethra or the bladder and no foreign body was seen. The urethra coapted appropriately at the location of the sling. The cystoscope was then removed and the case was terminated. The patient was awakened and taken to the recovery room in good condition. There were no complications during this procedure. Grafts/Implants Used: Altis midurethral sling Complications none Admit VTE Documentation VTE Present on Admission: Yes VTE Mechan Device Prophylaxis: SCD's VTE Pharm Prophylaxis ordered?: No Reason prophylaxis not ordered:: Treatment Not Indicated
[2022-02-12] MEDS: Cefazolin 2 GM in 0.9% Normal Saline 100 ML IV (09:51)
[2022-02-12] MEDS: Lidocaine 1% /Epi 1:100 (20ml) 20 ML Vial (10:07)
[2022-02-12] MEDS: Lubricating Jelly 60 GM Tube 30 GM (10:15)
[2022-02-12] MEDS: Albuterol 2.5 MG/3 ML VIAL.NEB. INHALATION (11:11)
== END 2022-02-12 12:54 | disposition home or self-care (01) ==
LOC: SDC 08:26 → AC 08:27
PROVIDERS: PCP Family Medicine; Referring Provider Urology; Visit Provider Urology
PROC: 0TJB8ZZ Inspection of Bladder, Via Natural or Artificial Opening Endoscopic (ICD-10-PCS; CPT 57288; principal; 2022-02-12 09:35)
DX: N39.46 Mixed incontinence (principal); K21.00 Gastro-esophageal reflux disease with esophagitis, without bleeding; F32.9 Major depressive disorder, single episode, unspecified; F41.9 Anxiety disorder, unspecified; Z90.710 Acquired absence of both cervix and uterus; Z20.822 Contact with and (suspected) exposure to COVID-19; Z79.899 Other long term (current) drug therapy; Z87.891 Personal history of nicotine dependence
CPT/HCPCS: 57288; 00942; 80048; 85025; 87426; 94640; J7120; J2405

== ENCOUNTER 2023-04-24 06:36 | Day surgery (SDC) | payer OTHER, SELFPAY ==
[2023-04-24] VITALS (7 sets, daily range): BP systolic 105–140; BP diastolic 60–93; PULSE 58–93; RESP 16–18; TEMP 36.1–37.2; O2SAT 95–100; BMI 37.6
[2023-04-24] MEDS: Lactated Ringers 1,000 ML 15 ML IV (07:05)
[2023-04-24] MEDS: Cefazolin 2 GM in 0.9% Normal Saline 100 ML IV (09:02)
[2023-04-24] MEDS: Lidocaine Jelly 2% 20 ML Syringe (URO-JET) 1 APPLIC (09:15)
--- NOTE | 2023-04-24 09:35 | DCINST_ITS ---
Discharge Instructions Diet Discharge Diet: No restrictions Activity Discharge Activity: Return to Normal Activity Dressing / Incision Call your doctor if you observe: Fever of 101 or Higher, Inability to urinate and Inability to have a bowel movement Follow Up Care Please Follow Up With: Mary Moreira MD When: next week, office will call for appt Test Results: Test results from this visit will be discussed in further detail at your follow- up appointment, if applicable. Discharge Plan Admission Attending Provider: Mary Moreira Primary Care Provider: Jeannie Sutton Discharge Orders/Prescriptions Prescriptions: New oxycodone-acetaminophen [Percocet] 5-325 mg tablet 1 tab PO Q8H PRN (Reason: pain) 2 Days Qty: 6 0RF cephalexin [cephalexin] 500 mg capsule 500 mg PO Q12 3 Days Qty: 6 0RF Continued multivitamin,ud-dtjt-sdkxqezq tablet 1 tab PO DAILY fluoxetine [Prozac] 20 MG capsule 60 mg PO DAILY omeprazole 20 MG capsule 20 mg PO QHS methylphenidate HCl [Concerta] 27 mg Tablet Extended Release 24hr 27 mg PO DAILY Referrals / Follow Up: Jeannie Sutton PA-C [Primary Care Provider] - Disposition Disposition (needs filled in before D/C Order can be placed): Home, Self Care
--- NOTE | 2023-04-24 09:37 | PCM.OPRPT ---
Report of Operation Date of Procedure: 04/24/23 Pre-Operative Diagnosis: intrinsic sphincter deficiency with stress incontinence Post-Operative Diagnosis: same Surgery/Procedure Performed:: cystoscopy with Bulkamid injection Surgeon: Mary Moreira Type of Anesthesia: MAC Description of Procedure: The patient is a 42-year-old female with a failed mid urethral sling still with stress incontinence secondary to intrinsic sphincter deficiency. Informed consent was obtained for Bulkamid injection and cystoscopy. The patient was taken to the operating room and placed in a supine position on the operating room table. Anesthesia monitored the head, neck, airway, IV access and vital signs throughout the case. Once anesthesia was appropriate ministered, the patient was placed into dorsolithotomy position was prepped and draped in usual sterile fashion. Once the special cystoscope was put together, it was inserted through the urethra into the urinary bladder and the needle was inserted at the 7 o'clock position a full 2 cm into the urinary bladder per the marking. At this time, the whole apparatus was pulled back measuring 2 cm from the bladder neck and just the needle was advanced approximately 0.75 cm superficially at the 7 o'clock position at which point a pillow was formed with injection of half of a syringe. The needle obturator was twisted to the 5 o'clock position and the process was repeated with the bevel pointing towards the lumen, at the same distance from the bladder neck as the first injection. This process was then repeated at the 2 o'clock position in the 10 o'clock position. At this time the needle was retracted and the scope was pulled distally revealing complete coaptation of the urethral mucosa. The cystoscope was completely removed and the patient was then awakened and taken to the recovery room in good condition. There were no complications during this procedure. Complications none Admit VTE Documentation VTE Present on Admission: Yes VTE Mechan Device Prophylaxis: SCD's VTE Pharm Prophylaxis ordered?: No Reason prophylaxis not ordered:: Treatment Not Indicated
== END 2023-04-24 10:31 | disposition home or self-care (01) ==
LOC: SDC 06:37 → AC 06:38
PROVIDERS: PCP Family Medicine; Referring Provider Urology; Visit Provider Urology
PROC: 3E0K8GC Introduction of Other Therapeutic Substance into Genitourinary Tract, Via Natural or Artificial Opening Endoscopic (ICD-10-PCS; CPT 52287; principal; 2023-04-24 08:10)
DX: N36.42 Intrinsic sphincter deficiency (ISD) (principal); N39.46 Mixed incontinence; K21.9 Gastro-esophageal reflux disease without esophagitis; F32.A Depression, unspecified; F41.9 Anxiety disorder, unspecified; Z90.710 Acquired absence of both cervix and uterus; Z79.899 Other long term (current) drug therapy
CPT/HCPCS: 51715; 00910; J7120; J2405

== ENCOUNTER 2024-07-29 05:56 | Day surgery (SDC) | payer OTHER, SELFPAY ==
[2024-07-29] VITALS (8 sets, daily range): BP systolic 107–112; BP diastolic 72–96; PULSE 62–77; RESP 16–18; TEMP 36.1–36.6; O2SAT 98–100; BMI 38.0
[2024-07-29] MEDS: Lactated Ringers 1,000 ML 15 ML IV (06:16)
--- NOTE | 2024-07-29 07:21 | PCM.PRE.AN2 ---
ASA Classification* ASA Classification ASA Classification: 2 Assessment & Plan Anesthesia* Anesthesia Assessment Anesthesia Assessment: Discussed sedation and/or anesthesia options, risks, benefits, and alternatives with patient/parents/legal guardian/POA. Questions invited. The patient/parents/legal guardian/POA seems to understand and agrees to proceed with anesthesia plan. Reviewed the physical assessment, medical history, allergy history and patient home medications list prior to surgery/procedure/anesthetic and documented any changes. Performed airway and anesthesia risk assessments. Anesthesia Type Anesthesia Type: MAC (GA bkup) Anesthesia Focused Assessment* Temperature: 97.8 F Pulse Rate: 69 Blood Pressure: 110/82 Respiratory Rate: 16 Pulse Ox: 100 Airway Assessment Mouth opens: >3 cm Mallampati Score: II Focused Labs Anesthesia Preop lab: CBC WBC 6.0 K/mm3 (4.4-11.0) 02/12/22 09:04 RBC 4.32 M/mm3 (4.2-5.4) 02/12/22 09:04 Hgb 12.7 g/dL (12.0-15.0) 02/12/22 09:04 Hct 38.9 % (37-47) 02/12/22 09:04 Plt Count 282 K/mm3 (150-450) 02/12/22 09:04 CHEMISTRY Potassium 3.9 mmol/L (3.5-5.1) 02/12/22 09:04 Sodium 139 mmol/L (136-145) 02/12/22 09:04 Magnesium 2.2 mg/dL (1.6-2.6) 11/09/20 08:28 BUN 10 mg/dL (7-18) 02/12/22 09:04 Creatinine 0.74 mg/dL (0.55-1.02) 02/12/22 09:04 Glucose 100 mg/dL (74-106) 02/12/22 09:04 POC Glucose 107 mg/dL (70-110) 11/10/20 06:17 TSH 1.46 uIU/mL (0.358-3.74) 06/21/20 10:13 COAG PT 12.6 SECONDS (11.7-14.9) 10/02/18 08:44 Urine Test Negative Negative 11/10/20 06:10 Pre-Assessment Diagnosis/Proposed Procedure Planned Operative Procedure(s): CYSTO AND BULKAMID INJECTION Anesthesia History 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 When Was Last Pacemaker Check QUESTION #4 FULL TEXT: You/Your Family Experience fever (hyperthermia) with Anesthesia Last Oral Intake Last Oral intake: Last Oral Intake NPO since 22:00 07/29/24 06:13 Meds taken in AM with sips of water? Meds patient instructed to take am of surgery PONV PONV - carpenter labor supervisor: PONV - carpenter labor supervisor Female Yes 07/26/24 10:14 HX of Motion Sickness No 07/26/24 10:14 HX of N/V After Surgery No 07/26/24 10:14 Non-Smoker Yes 07/26/24 10:14 Duration of Surgery greater No 07/26/24 10:14 than 60 minutes Number of Risk Factors 2 07/26/24 10:14 PONV Score Moderate Risk 07/26/24 10:14 Height & Weight Height & Weight: Anesthesia: Height & Weight Height 5 ft 6 in 07/29/24 06:13 Weight: 107 kg 07/29/24 06:13 Body Mass Index (BMI) 38.0 07/29/24 06:13 Respiratory Assessment Respiratory Assessment - carpenter labor supervisor: Respiratory Tract Infection Hx - carpenter labor supervisor Hx Respiratory Tract Infection No 07/26/24 10:14 STOP Sleep Apnea STOP Sleep Apnea - carpenter labor supervisor: STOP Sleep Apnea - carpenter labor supervisor Hx Hypertension No 07/26/24 10:14 Hx Sleep Apnea No 07/26/24 10:14 CPAP BIPAP Do you snore loudly (louder No 07/26/24 10:14 than talking or can be heard Do you often feel tired/ Yes 07/26/24 10:14 fatigued/ sleepy during daytime? Has anyone observed you stop No 07/26/24 10:14 breathing during sleep? STOP Results Negative 07/26/24 10:14 QUESTION #5 FULL TEXT : Do you snore loudly (louder than talking or can be heard through closed doors)? Tobacco Use History Tobacco Use History - carpenter labor supervisor: Tobacco Use History - carpenter labor supervisor Tobacco Use Smoking Status Former smoker 07/26/24 10:14 Hx Tobacco Use No 07/26/24 10:14 Years Smoking Packs Smoked per Day Smoking Cessation Date was Yes - quit smoking within 15 07/26/24 10:14 within the last 15 years years Hx Smoking Cessation Date 03/27/12 07/26/24 10:14 Hx Smoking Cessation Counseling Hematologic Medial History Hematologic Hx - carpenter labor supervisor: Hematologic Medical Hx - delivery rn Hx of Blood Transfusion No 07/26/24 10:14 Hx of Transfusion in last 3 No 07/26/24 10:14 Months Date of Last Transfusion (if within last 3 months) Ever experience any problems No 07/26/24 10:14 with transfusion(s)? Specify any problems Hx of Preganancy in last 3 No 07/26/24 10:14 Months Nurse Filling Out Transfusion DSCHRIBER 07/26/24 10:14 & Questions: Date: 07/26/24 07/26/24 10:14 Time: 10:15 07/26/24 10:14 Patient unable to answer at this time (ie. confused, unrespo /Reproduction History /Reproductive History - carpenter labor supervisor: /Reproductive Hx- carpenter labor supervisor Hx Now No 07/26/24 10:14 Gestational Age (in weeks): EDC: Hx Hx Para Hx Section SAB No 07/26/24 10:14 Active Medications Active Medications: Current Medications Generic Name Dose Route Start Last Admin Trade Name Freq PRN Reason Stop Dose Admin Cefazolin Sodium 2 gm/ Sodium 110 mls @ 150 mls/hr 07/29/24 07:30 Chloride IV 07/29/24 08:13 PREOP ONE Lactated Ringer's 1,000 mls @ 15 mls/hr 07/29/24 06:00 07/29/24 06:16 IV 15 mls/hr .Q48H CLAUDIO Administration PFSH Medical History Depression Anxiety Bladder disease Restless legs Migraine headache Stress incontinence Post-menopausal Wears glasses Alcohol use Hx of esophagitis History of hiatal hernia Gastric reflux Former smoker Amenia's duct cyst Anxiety and depression Home Medications ?Medication ?Instructions ?Recorded ?Last Taken ?Type fluoxetine 20 mg capsule (Prozac) 20 mg PO DAILY 04/22/14 Unknown History multivitamin,rf-obzy-vclknley 1 tab PO DAILY 06/21/20 Unknown History (Complete Multivitamin tablet) omeprazole 20 mg capsule,delayed 20 mg PO QHS 10/31/20 Unknown History release lisdexamfetamine 50 mg capsule 50 mg PO DAILY 07/26/24 Unknown History (Vyvanse) Allergy/AdvReac Type Severity Reaction Status Date / Time adhesive Allergy Other Verified 07/29/24 06:12 adhesive tape Allergy Other Verified 07/29/24 06:12 Family History Mother Cancer ovarian Grandmother Cancer ovarian Aunt Breast cancer Surgical History (Updated 07/26/24 @ 10:18 by Tanya Vasques) History of cystoscopy Hx of cystoscopy Hx of spinal fusion History of LAVH History of gastric surgery Encounter for Essure implantation delivery delivered Social History Smoking Status: Former smoker alcohol intake: current details: social substance use type: does not use caffeine: Yes what type of physical activity do you participate in: walking and weight training seatbelt use: always do you feel safe at home: Yes 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
--- NOTE | 2024-07-29 07:30 | BLA_PTH ---
PATIENT: SANDIP WU LOC: [facility] [place] U#:[id number] AGE/SX: 43/F ROOM: RE07/29/[address]: Dr. Mary Moreira MD : 1980 BED: DIS: 07/29/2024 SPEC #: [id number] RECD: 07/29/24 09:24 STATUS: FAINA ELIO #: [id number] JULIÁN: 07/29/24 07:[address]: Mary Moreira DEPT: SURGICAL PATHOLOGY RECD BY: Jocelynn Hernandez ENTERED: 07/29/24 10:44 SP TYPE: BLADDER BX OTHR DR: Jeannie Sutton PA-C Tissues: Urinary bladder, NOS Procedures: Surgery Specimen Level IV HEADER OPERATION: Injection bulkamid and biopsy and fulguration PRE-OP DIAGNOSIS: Intrisi spincter deficiency, stress incontinence, urinary tract infection TISSUE SUBMITTED: Bladder neck polyp MICROSCOPIC DIAGNOSIS Bladder neck polyp, biopsy: Fragments of urothelial mucosa with moderate chronic inflammation and lymphoid aggregates formation (chronic follicular cystitis) and focal squamous metaplasia. Negative for malignancy. See comment. Kalia 07/30/2024 COMMENT Clinical correlation and appropriate follow up are necessary. MICROSCOPIC DESCRIPTION Slides are reviewed. GROSS DESCRIPTION Received in fixative is one container labeled with the patient's name and designated Bladder neck polyp. The specimen consists of two irregular fragments of light camacho soft tissue that in aggregate measure 0.2 x 0.1 x 0.1 cm. The specimen is totally submitted in one cassette. 07/29/2024 TC:3 CPT:[id number]
[2024-07-29] MEDS: Cefazolin 2 GM in 0.9% Normal Saline (100mL Bag) 100 ML IV (07:34)
--- NOTE | 2024-07-29 08:20 | PCM.POST.ANE ---
Anesthesia: Postop Eval I Current Vital Signs Temperature: 97.7 F Pulse Rate: 66 Blood Pressure: 107/72 Respiratory Rate: 18 Pulse Ox: 98 Oxygen Delivery Method: Room Air Assessment Airway patent: Yes Spontaneous unlabored respirations: Yes Mental status: Awake and Calm nausea: No Vomiting: No Anesthesia Complication: No Fluid Hydration Crystalloid volume administer (ml): 800 Total IV fluid infused: 800 Progress Note Anesthesia document: Postop Eval 1 completed: Yes
--- NOTE | 2024-07-29 08:37 | EX.PCM.DISCH ---
Discharge Instructions Diet Discharge Diet: No restrictions Activity Discharge Activity: - (No exercise or strenuous activity for 48 hours, may then resume normal activity) May resume sexual activity in: 1 week Dressing / Incision Call your doctor if your incision/area has: Sudden Increased Bleeding and Foul Smelling Discharge Call your doctor if you observe: Fever of 101 or Higher, Inability to urinate and Inability to have a bowel movement Follow Up Care Please Follow Up With: Mary Moreira MD When: The office will call to make arrangements for appointment next week. Test Results: Test results from this visit will be discussed in further detail at your follow-up appointment, if applicable. Discharge Plan Admission Attending Provider: Mary Moreira Primary Care Provider: Jeannie Sutton Instructions Print Language: Palestinian Discharge Orders/Prescriptions Prescriptions: New cephalexin 500 mg capsule 500 mg PO Q12 3 Days Qty: 6 0RF Continued Complete Multivitamin Tablet 1 tab PO DAILY fluoxetine [Prozac] 20 MG capsule 20 mg PO DAILY omeprazole 20 MG capsule 20 mg PO QHS lisdexamfetamine [Vyvanse] 50 mg capsule 50 mg PO DAILY Referrals / Follow Up: Jeannie Sutton PA-C [Primary Care Provider] - Disposition Disposition (needs filled in before D/C Order can be placed): Home, Self Care
--- NOTE | 2024-07-29 08:50 | POSTOPAN2_ITS ---
Anesthesia Postop Eval I Sum Postop Eval Completion status Anesthesia document: Postop Eval 1 completed: Yes Anesthesia Postop Eval I Summary Anesthesia Postop Eval I Summary: Anesthesia Postop Eval I: Assessment Summary Airway patent Yes 07/29/24 08:21 SENIOR [email or web address] [email or web address] Spontaneous unlabored Yes 07/29/24 08:21 SENIOR RESEARCH [email or web address] respirations Mental status Awake,Calm 07/29/24 08:21 SENIOR RESEARCH [email or web address] nausea No 07/29/24 08:21 SENIOR RESEARCH [email or web address] Vomiting No 07/29/24 08:21 SENIOR RESEARCH [email or web address] Anesthesia Postop Eval I: Fluid Summary Crystalloid volume administer 800 07/29/24 08:21 SENIOR RESEARCH [email or web address] (ml) Colloids volume administered ( ml) Blood Product volume administered (ml) Total IV fluid infused 800 07/29/24 08:21 SENIOR RESEARCH [email or web address] Anesthesia Postop Eval I: Summary Notes Anesthesia Complication No 07/29/24 08:21 SENIOR RESEARCH [email or web address] Anesthesia Complication Comment: Post-operative progress note Anesthesia: Postop Eval II Evaluation Mental status: Awake Pain Level: 0 nausea: No Vomiting: No
--- NOTE | 2024-07-29 08:50 | PCM.POSTANE2 ---
Anesthesia Postop Eval I Sum Postop Eval Completion status Anesthesia document: Postop Eval 1 completed: Yes Anesthesia Postop Eval I Summary Anesthesia Postop Eval I Summary: Anesthesia Postop Eval I: Assessment Summary Airway patent Yes 07/29/24 08:21 SOLE [email or web address] Spontaneous unlabored Yes 07/29/24 08:21 SOLE [email or web address] respirations Mental status Awake,Calm 07/29/24 08:21 SOLE [email or web address] nausea No 07/29/24 08:21 SOLE [email or web address] Vomiting No 07/29/24 08:21 SOLE [email or web address] Anesthesia Postop Eval I: Fluid Summary Crystalloid volume administer 800 07/29/24 08:21 SOLE [email or web address] (ml) Colloids volume administered ( ml) Blood Product volume administered (ml) Total IV fluid infused 800 07/29/24 08:21 SOLE [email or web address] Anesthesia Postop Eval I: Summary Notes Anesthesia Complication No 07/29/24 08:21 SOLE [email or web address] Anesthesia Complication Comment: Post-operative progress note Anesthesia: Postop Eval II Evaluation Mental status: Awake Pain Level: 0 nausea: No Vomiting: No
--- NOTE | 2024-07-29 09:02 | OP.PCM_ITS ---
Report of Operation Date of Procedure: 07/29/24 Pre-Operative Diagnosis: Intrinsic sphincter deficiency, stress urinary inconti nence Post-Operative Diagnosis: Same, bladder neck polyps Surgery/Procedure Performed:: Cystoscopy with biopsy and fulguration of bladder neck polyps x 2, Bulkamid injection Surgeon: Mary Moreira Type of Anesthesia: MAC Specimen's removed: Bladder neck polyp x 2 Description of Procedure: The patient is a 43-year-old female with significant stress incontinence and intrinsic sphincter deficiency who presents for Bulkamid injection. Informed consent was obtained. She was taken to the operating room and placed on the operating room table. Anesthesia monitored the head, neck, airway, IV access and vital signs throughout the case. Once anesthesia was appropriately administered she was placed into dorsolithotomy position and was prepped and draped in usual sterile fashion. The Bulkamid cystoscope was inserted into the urethra. The mid urethral sling area was identified and no evidence of extrusion of mesh was seen and at the bladder neck there were 2 polyps at the 8:00 and 10:00 positions. The Bulkamid scope was switched out for a regular rigid cystoscope and a biopsy forcep was used to remove the 2 polyps which were small. The bases of these were then fulgurated with the Bugbee for hemostatic control. The remainder of the bladder revealed no evidence of mass, erythema, polyp or other abnormality. At this time the Bulkamid cystoscope was utilized once again. The needle was placed to the 2 cm jessica at the bladder neck and pulled back. With the bevel medial 4 pillows of Bulkamid were made with injection at the 7 o'clock position followed by the 5 o'clock position, 1:00 and finally 11:00. The tissue coapted as appropriate. The scope was removed and the patient was awakened and taken to the recovery room in good condition. There were no complications during the procedure. Grafts/Implants Used: Bulkamid Complications None Admit VTE Documentation VTE Present on Admission: Yes VTE Mechan Device Prophylaxis: SCD's VTE Pharm Prophylaxis ordered?: No Reason prophylaxis not ordered:: Treatment Not Indicated
== END 2024-07-29 09:15 | disposition home or self-care (01) ==
LOC: SDC 05:57 → AC 05:58
PROVIDERS: PCP Family Medicine; Referring Provider Urology; Visit Provider Urology
PROC: 3E0K8GC Introduction of Other Therapeutic Substance into Genitourinary Tract, Via Natural or Artificial Opening Endoscopic (ICD-10-PCS; CPT 52287; principal; 2024-07-29 07:20)
DX: N36.42 Intrinsic sphincter deficiency (ISD) (principal); N39.3 Stress incontinence (female) (male); N32.89 Other specified disorders of bladder; Z87.891 Personal history of nicotine dependence
CPT/HCPCS: 52204; 51715; 00910; 88305; J7120; J2405